=== PATIENT | female | born 2000 | race Caucasian/White ===

== ENCOUNTER 2018-07-20 15:56 | Emergency (ER) | payer BC ==
[2018-07-20] MEDS ORDERED: Ondansetron ODT TAB* 4 MG PO ONE (16:45)
[2018-07-20 17:08] LABS: Influenza A Molecular NEGATIVE (Negative); Influenza B Molecular NEGATIVE (Negative)
--- NOTE | 2018-07-20 17:37 | UC ---
Throat Pain/Nasal Santos HPI - HPI Summary HPI Summary: 18-year-old female presents with 4 day history of general malaise, headache, nasal congestion, sore throat, nonproductive cough, and nausea. Patient had one episode of emesis just prior to triage. Denies fever, dizziness, ear pain, dysphagia, chest pain, palpitations, shortness of breath, abdominal pain, diarrhea, dysuria, frequency, urgency, or vaginal discharge. - History of Current Complaint Chief Complaint: UCGeneralIllness Stated Complaint: NAUSEA,FEVER,CHILLS,CONGESTION Time Seen by Provider: 07/20/18 17:04 Hx Obtained From: Patient Hx Last Menstrual Period: 07/12/18 Pain Intensity: 0 - Allergies/Home Medications Allergies/Adverse Reactions: Allergies Allergy/AdvReac Type Severity Reaction Status Date / Time No Known Allergies Allergy Verified 07/20/18 16:33 Home Medications: Home Medications Spironolactone TAB* [Aldactone TAB*] 150 mg PO DAILY 07/20/18 [History Confirmed 07/20/18] buPROPion SR TAB* [Wellbutrin SR TAB*] 150 mg PO DAILY 07/20/18 [History Confirmed 07/20/18] PMH/Surg Hx/FS Hx/Imm Hx Previously Healthy: Yes Psychological History: Anxiety, Depression - Surgical History Surgical History: Yes Surgery Procedure, Year, and Place: T & A. fx nose - Family History Known Family History: Positive: Non-Contributory - Social History Occupation: Student Lives: Dormitory/Roommates Alcohol Use: Occasionally Substance Use Type: None Smoking Status (MU): Never Smoked Tobacco Review of Systems All Other Systems Reviewed And Are Negative: Yes Constitutional: Positive: Chills, Fatigue, Other - General malaise. Negative: Fever Eyes: Negative: Drainage, Eye Redness ENT: Positive: Sore Throat, Nasal Discharge, Sinus Congestion. Negative: Ear Ache, Sinus Pain/Tenderness Respiratory: Negative: Shortness Of Breath, Cough Cardiovascular: Negative: Palpitations, Chest Pain Gastrointestinal: Positive: Vomiting, Nausea. Negative: Abdominal Pain, Diarrhea Genitourinary: Negative: Dysuria, Hematuria, Frequency, Urgency, Vaginal/Penile Discharge, Abnormal Bleeding Musculoskeletal: Positive: Negative Neurological: Positive: Negative Physical Exam - Summary Physical Exam Summary: GENERAL APPEARANCE: Well developed, well nourished, alert and cooperative, and appears to be in no acute distress. EYES: Conjunctiva clear. No discharge. Vision is grossly intact. EARS: External auditory canals and tympanic membranes clear, hearing grossly intact. NOSE: Mild-moderate nasal congestion. THROAT: Mild pharyngeal erythema. Tonsils surgically absent. Oral cavity normal.Teeth and gingiva in good general condition. NECK: Neck supple, non-tender without lymphadenopathy. CARDIAC: Normal S1 and S2. No S3, S4 or murmurs. Rhythm is regular. There is no peripheral edema, cyanosis or pallor. Extremities are warm and well perfused. Capillary refill is less than 2 seconds. LUNGS: Clear to auscultation without rales, rhonchi, wheezing or diminished breath sounds. ABDOMEN: Positive hyperactive bowel sounds. Soft, nondistended, nontender. No guarding or rebound. No masses or hepatosplenomegally. No CVA tenderness. MUSKULOSKELETAL: ROM intact to all extremities. No joint erythema or tenderness. Normal muscular development. Normal gait. SKIN: Skin normal color, texture and turgor with no lesions or eruptions. Triage Information Reviewed: Yes Vital Signs: Initial Vital Signs Temp 99.6 F 07/20/18 16:28 Pulse 89 07/20/18 16:28 Resp 17 07/20/18 16:28 BP 103/59 07/20/18 16:28 Pulse Ox 100 07/20/18 16:28 Vital Signs Reviewed: Yes Diagnostics - Laboratory Diagnostic Studies Completed/Ordered: Rapid flu negative. Urine negative. Throat Pain/Nasal Course/Dx - Course Course Of Treatment: 18-year-old female presents with 4 day history of general malaise, headache, nasal congestion, sore throat, nonproductive cough, and nausea. Patient had one episode of emesis just prior to triage. Denies fever, dizziness, ear pain, dysphagia, chest pain, palpitations, shortness of breath, abdominal pain, diarrhea, dysuria, frequency, urgency, or vaginal discharge. Afebrile. Vital signs stable. Exam revealed an alert young adult female in no acute distress with mild to moderate nasal congestion, mild pharyngeal erythema , surgically absent tonsils, clear bilateral breath sounds, hyperactive bowel sounds but nontender abdomen. Rapid flu was negative. Urine negative. With improvement. She was given a dose of ondansetron 4 mg for the nausea and vomiting with improvement in symptoms and she was able to tolerate by mouth fluids prior to discharge. Recommending symptomatic treatment for a viral infection. I have given her a prescription for ondansetron 4 mg every 8 hours as needed for nausea or vomiting. Anticipatory guidance and warning symptoms reviewed with the patient. She verbalizes understanding of your primary care. - Differential Dx/Diagnosis Differential Diagnosis/HQI/PQRI: Influenza, Mononucleosis, Otitis Media, Pharyngitis, Sinusitis, Tonsillitis, URI Provider Diagnosis: Viral syndrome Discharge - Sign-Out/Discharge Documenting (check all that apply): Patient Departure All imaging exams completed and their final reports reviewed: No Studies - Discharge Plan Condition: Stable Disposition: HOME Prescriptions: Fluticasone NASAL SPRAY 50MCG* [Flonase NASAL SPRAY 50MCG*] 2 spray BOTH NARES DAILY #1 btl Ondansetron ODT TAB* [Zofran 4 MG Odt TAB*] 4 mg PO Q8H PRN #9 tab.odt PRN Reason: Nausea/Vomiting Patient Education Materials: Viral Syndrome (ED) Referrals: No Primary Care Phys,NOPCP [Primary Care Provider] - Additional Instructions: Your rapid flu test performed in the clinic today was negative. Your history and exam are consistent with a viral upper respiratory infection. Viral infections do not respond to antibiotics and are limited to the treatment of symptoms. Viral infections typically run their course in 7-10 days. Drink plenty of fluids to avoid dehydration especially if you are running any fever. Take ondansetron 4 mg 1 tablet every 8 hours as needed for nausea or vomiting. Use a saline rinse kit such as Neti Pot or NeilMed at least twice a day to help thin secretions and promote drainage of the sinuses. Use fluticasone (Flonase) nasal spray 2 sprays each nostril once daily. Take over the counter acetaminophen (Tylenol) or ibuprofen (Advil, Motrin) according to directions as needed for pain or fever. Use salt water gargles several times a day if you have a sore throat. You may also use Chloraseptic spray or Cepacol lonzenges according to directions which contain a numbing medication and can provide some temporary relief from your sore throat. Return here or follow up with your primary care provider in 7 days if symptoms persist. Seek immediate medical attention in the emergency room if you have fever greater than 100.5 F despite taking acetaminophen or ibuprofen, have chest pain , difficulty breathing, are unable to swallow, have severe abdominal pain, persistent vomiting or have any worsening of symptoms. - Billing Disposition and Condition Condition: STABLE Disposition: Home - Attestation Statements Provider Attestation: I was available for consult. This patient was seen by the PRADIP. The patient was not presented to, seen by, or examined by me. EK
[2018-07-20 17:50] VITALS: BP 109/68
== END 2018-07-20 18:02 | disposition home or self-care (01) ==
LOC: UCCORT 15:56
DX: B34.9 Viral infection, unspecified (principal); R53.81 Other malaise; R51 Headache; R09.81 Nasal congestion; R05 Cough; R11.2 Nausea with vomiting, unspecified; F32.9 Major depressive disorder, single episode, unspecified; F41.9 Anxiety disorder, unspecified
CPT/HCPCS: 84702; 99202; A9270-GY; G0463

== ENCOUNTER 2018-10-23 19:05 | Emergency (ER) | payer BC ==
[2018-10-23 19:31] VITALS: BP 106/72
--- NOTE | 2018-10-23 19:41 | UC ---
Skin Complaint HPI - HPI Summary HPI Summary: Pt presents with c/o right sided facial check pruritic skin after lying in tanning bed earlier to day. Also, c/o canker sore on right side of inner cheek posterior right upper jaw. - History of Current Complaint Chief Complaint: UCSkin Time Seen by Provider: 10/23/18 19:34 Stated Complaint: ORAL PAIN Hx Obtained From: Patient Hx Last Menstrual Period: "doesn't get periods" "works out too much" ?: No Onset/Duration: Sudden Onset - "itchy skin", Gradual Onset - canker sore Skin Exposure Onset/Duration: Hours Ago Timing: Constant Onset Severity: Mild Current Severity: Mild Pain Intensity: 0 Location: Discrete, Face Character: Pruritus, Painful Aggravating Factor(s): Touch - canker sore is tender Alleviating Factor(s): Unknown Associated Signs & Symptoms: Positive: Tenderness - Allergy/Home Medications Allergies/Adverse Reactions: Allergies Allergy/AdvReac Type Severity Reaction Status Date / Time No Known Allergies Allergy Verified 10/23/18 19:31 PMH/Surg Hx/FS Hx/Imm Hx Previously Healthy: Yes - Surgical History Surgical History: Yes Surgery Procedure, Year, and Place: T & A. fx nose - Family History Known Family History: Positive: Non-Contributory - Social History Occupation: Student Lives: Dormitory/Roommates Alcohol Use: Occasionally Substance Use Type: None Smoking Status (MU): Never Smoked Tobacco Have You Smoked in the Last Year: No - Immunization History Vaccination Up to Date: Yes Review of Systems All Other Systems Reviewed And Are Negative: Yes Constitutional: Positive: Negative Skin: Positive: Other - c/o pruritis Eyes: Positive: Negative ENT: Positive: Other - canker sore Respiratory: Positive: Negative Cardiovascular: Positive: Negative Gastrointestinal: Positive: Negative Genitourinary: Positive: Negative Motor: Positive: Negative Neurovascular: Positive: Negative Musculoskeletal: Positive: Negative Neurological: Positive: Negative Psychological: Positive: Negative Is Patient Immunocompromised?: No Physical Exam - Summary Physical Exam Summary: Pt states that she is a hypochondriac Triage Information Reviewed: Yes Appearance: Well-Appearing Vital Signs: Initial Vital Signs Temp 97.2 F 10/23/18 19:25 Pulse 72 10/23/18 19:25 Resp 16 10/23/18 19:25 BP 106/72 10/23/18 19:25 Pulse Ox 100 10/23/18 19:25 Vital Signs Reviewed: Yes Eye Exam: Normal ENT: Positive: Other - apthous eraser size right upper cheek, posterior last upper molar Dental Exam: Normal Neck exam: Normal Neck: Positive: Supple, Nontender, No Lymphadenopathy Respiratory Exam: Normal Respiratory: Positive: No respiratory distress Musculoskeletal Exam: Normal Neurological Exam: Normal Psychological Exam: Normal Skin Exam: Other - no rash on face. small pustule on right chin Course/Dx - Differential Diagnoses - Skin Complaint Differential Diagnoses: Contact Dermatitis - Diagnoses Provider Diagnosis: Itchy skin, Canker sores oral Discharge - Sign-Out/Discharge Documenting (check all that apply): Patient Departure All imaging exams completed and their final reports reviewed: No Studies - Discharge Plan Condition: Stable Disposition: HOME Patient Education Materials: Canker Sores (ED), Itchy Skin (ED) [place]: [facility] [place] [facility] [place]] - If Needed No Primary Care Phys,NOPCP [Primary Care Provider] - Additional Instructions: PLEASE FOLLOW UP WITH YOUR PCP OR USE THE REFERRAL NUMBER WE HAVE PROVIDED FOR A NEW PCP. IF YOUR SYMPTOMS WORSEN PLEASE RETURN TO CLINIC OR GO DIRECTLY TO THE CLOSEST EMERGENCY ROOM. - Billing Disposition and Condition Condition: STABLE Disposition: Home
== END 2018-10-23 19:50 | disposition home or self-care (01) ==
LOC: UCCORT 19:05
DX: L29.8 Other pruritus (principal); K12.0 Recurrent oral aphthae
CPT/HCPCS: 99211; G0463

== ENCOUNTER 2019-03-19 07:07 | Emergency (ER) | payer BC, OTHER ==
[2019-03-19 07:21] VITALS: BP 106/65
--- NOTE | 2019-03-19 07:31 | UC ---
Complaint Female HPI - HPI Summary HPI Summary: dysuria x 2 days + frequency , urgency , no fever, no chills, no flank pain - History Of Current Complaint Chief Complaint: UCGU Stated Complaint: URINARY Time Seen by Provider: 03/19/19 07:11 Hx Obtained From: Patient Hx Last Menstrual Period: 03/14/19 ?: No Onset/Duration: Gradual Onset, Lasting Days - 2, Still Present Timing: Constant Severity Initially: Moderate Severity Currently: Moderate Pain Intensity: 8 Character: Burning Aggravating Factor(s): Urination Alleviating Factor(s): Nothing Associated Signs And Symptoms: Positive: Negative. Negative: Fever, Back Pain, Vaginal Bleeding/Discharge, Vaginal Discharge, Nausea, Vomiting(# Of Episodes =) , Genital Swelling, Genital Blisters, Retained Foregin Body (Specify) Related Hx: Similar Episode/Dx as: - UTI - Allergies/Home Medications Allergies/Adverse Reactions: Allergies Allergy/AdvReac Type Severity Reaction Status Date / Time No Known Allergies Allergy Verified 03/19/19 07:16 PMH/Surg Hx/FS Hx/Imm Hx Previously Healthy: Yes - Surgical History Surgical History: Yes Surgery Procedure, Year, and Place: T & A. fx nose - Family History Known Family History: Positive: Non-Contributory Negative: Diabetes - Social History Alcohol Use: Occasionally Substance Use Type: None Smoking Status (MU): Never Smoked Tobacco Have You Smoked in the Last Year: No - Immunization History Vaccination Up to Date: Yes Review of Systems All Other Systems Reviewed And Are Negative: Yes Constitutional: Positive: Negative Skin: Positive: Negative Eyes: Positive: Negative ENT: Positive: Negative Respiratory: Positive: Negative Gastrointestinal: Positive: Negative. Negative: Abdominal Pain Genitourinary: Positive: Dysuria, Frequency, Urgency. Negative: Hematuria Is Patient Immunocompromised?: No Physical Exam Triage Information Reviewed: Yes Appearance: Well-Appearing, No Pain Distress, Well-Nourished Vital Signs: Initial Vital Signs Temp 98.6 F 03/19/19 07:17 Pulse 72 03/19/19 07:17 Resp 16 03/19/19 07:17 BP 106/65 03/19/19 07:17 Pulse Ox 100 03/19/19 07:17 Vital Signs Reviewed: Yes Eye Exam: Normal Eyes: Positive: Conjunctiva Clear ENT: Positive: Normal ENT inspection, Hearing grossly normal, Pharynx normal Neck exam: Normal Neck: Positive: Supple Respiratory: Positive: Chest non-tender, Lungs clear, Normal breath sounds Cardiovascular: Positive: RRR, No Murmur, Pulses Normal Abdominal Exam: Normal Abdomen Description: Positive: Nontender, Soft. Negative: CVA Tenderness (R), CVA Tenderness (L), Distended, Guarding Bowel Sounds: Positive: Present Complaint Female Dx - Differential Dx/Diagnosis Provider Diagnosis: UTI (urinary tract infection) Discharge ED - Sign-Out/Discharge Documenting (check all that apply): Patient Departure All imaging exams completed and their final reports reviewed: No Studies - Discharge Plan Condition: Stable Disposition: HOME Referrals: No Primary Care Phys,NOPCP [Primary Care Provider] - - Billing Disposition and Condition Condition: STABLE Disposition: Home
== END 2019-03-19 07:37 | disposition home or self-care (01) ==
LOC: UCCORT 07:07
DX: N39.0 Urinary tract infection, site not specified (principal)
CPT/HCPCS: 81003; 87086; 99212; G0463

== ENCOUNTER 2019-07-31 07:13 | Emergency (ER) | payer BC ==
[2019-07-31 07:28] VITALS: BP 107/77
[2019-07-31 07:44] LABS: Influenza A Molecular Negative (Negative); Influenza B Molecular Negative (Negative)
--- NOTE | 2019-07-31 07:54 | UC ---
Throat Pain/Nasal Santos HPI - HPI Summary HPI Summary: 19-year-old woman comes in with chief complaint of upper respiratory tract infection symptoms for 4 days. Said fevers chills body aches. Does have clear rhinorrhea. She has cough and some chest congestion. She's been taking over- the-counter medications with minimal relief. - History of Current Complaint Chief Complaint: UCGeneralIllness Stated Complaint: COUGH,FEVER,BODY ACHES Time Seen by Provider: 07/31/19 07:44 Hx Last Menstrual Period: 07/16/19 Pain Intensity: 7 - Allergies/Home Medications Allergies/Adverse Reactions: Allergies Allergy/AdvReac Type Severity Reaction Status Date / Time No Known Allergies Allergy Verified 07/31/19 07:24 Home Medications: Home Medications D-Methorphan/PE/Acetaminophen [Daytime Cold Multi-Symp Gelcap] 1 dose PO ONCE [History Confirmed 07/31/19] Dm/Acetaminophen/Doxylamine [Night Cold-Flu Relief Liq Gel] 1 dose PO ONCE 07/31 [History Confirmed 07/31/19] PMH/Surg Hx/FS Hx/Imm Hx Previously Healthy: Yes - Surgical History Surgical History: Yes Surgery Procedure, Year, and Place: T & A. fx nose - Family History Known Family History: Positive: Non-Contributory Negative: Diabetes - Social History Alcohol Use: Weekly Substance Use Type: None Smoking Status (MU): Never Smoked Tobacco Have You Smoked in the Last Year: No - Immunization History Vaccination Up to Date: Yes Review of Systems All Other Systems Reviewed And Are Negative: Yes Constitutional: Positive: Fever, Chills, Other - SEE HPI Skin: Positive: Negative Eyes: Positive: Negative ENT: Positive: Sore Throat, Nasal Discharge, Sinus Congestion Respiratory: Positive: Cough, Other - SEE HPI Cardiovascular: Positive: Negative Gastrointestinal: Positive: Negative Motor: Positive: Negative Neurovascular: Positive: Negative Musculoskeletal: Positive: Myalgia Neurological/Mental Status: Positive: Negative Psychological: Positive: Negative Is Patient Immunocompromised?: No Physical Exam Triage Information Reviewed: Yes Appearance: No Pain Distress, Well-Nourished, Ill-Appearing - MILD Vital Signs: Initial Vital Signs Temp 98.3 F 07/31/19 07:25 Pulse 78 07/31/19 07:25 Resp 18 07/31/19 07:25 BP 107/77 07/31/19 07:25 Pulse Ox 99 07/31/19 07:25 Vital Signs Reviewed: Yes Eye Exam: Normal Eyes: Positive: Conjunctiva Clear ENT: Positive: Pharynx normal, Nasal congestion, Nasal drainage, TMs normal Neck: Positive: Supple Respiratory: Positive: Lungs clear, Normal breath sounds, No respiratory distress Cardiovascular: Positive: RRR Musculoskeletal: Positive: Strength Intact, ROM Intact Neurological: Positive: Alert, Muscle Tone Normal Psychological: Positive: Age Appropriate Behavior Skin Exam: Normal Throat Pain/Nasal Course/Dx - Course Course Of Treatment: DISCUSSED VIRAL VERSES BACTERIAL INFECTIONS AND THE ROLE OF ANTIBIOTICS. THE PATIENT PREFERS TO HAVE A ANTIBIOTIC RX AT THIS TIME TO USE IF NOT IMPROVING. - Differential Dx/Diagnosis Provider Diagnosis: Upper respiratory infection Discharge ED - Sign-Out/Discharge Documenting (check all that apply): Patient Departure All imaging exams completed and their final reports reviewed: No Studies - Discharge Plan Condition: Stable Disposition: HOME Prescriptions: Amoxicillin PO (*) [Amoxicillin 875 MG (*)] 875 mg PO BID #20 tab Patient Education Materials: Upper Respiratory Infection (ED) Forms: *Physical Education Release Referrals: [facility] [Outside] Additional Instructions: FOLLOW UP WITH YOUR DOCTOR IF NOT COMPLETELY IMPROVED. GET REEVALUATED SOONER IF NOT IMPROVED OR WORSE OR ANY QUESTIONS OR CONCERNS. - Billing Disposition and Condition Condition: STABLE Disposition: Home
== END 2019-07-31 08:00 | disposition home or self-care (01) ==
LOC: UCCORT 07:13
DX: J06.9 Acute upper respiratory infection, unspecified (principal)
CPT/HCPCS: 87651; 99212; G0463